=== PATIENT | female | born 2000 | race Two or more races ===

== ENCOUNTER 2021-12-30 16:36 | Emergency (ER) | payer MEDICAID ==
[~2021-12-30] VITALS: Ht 157.5 cm; Wt 75.5 kg
[~2021-12-30 16:36] MED LIST: DIPH-423 PO
[2021-12-30] MEDS ORDERED: DOXYCYCLINE 100MG CAPSULE PO STA (18:19)
[2021-12-30] MEDS ORDERED: DOXY100C76 PO (18:20)
[2021-12-30 18:33] VITALS: BP 116/76
== END 2021-12-30 18:34 | disposition home or self-care (01) ==
LOC: ER 16:37
DX: T63.391A Toxic effect of venom of other spider, accidental (unintentional), initial encounter (principal); L53.0 Toxic erythema; L08.9 Local infection of the skin and subcutaneous tissue, unspecified; Z79.899 Other long term (current) drug therapy; Y92.89 Other specified places as the place of occurrence of the external cause
CPT/HCPCS: 99283